=== PATIENT | female | born 1985 | race Caucasian/White ===

== ENCOUNTER → 2016-11-13 | Outpatient (CLI) | payer OTHER | END | disposition home or self-care (01) | LOC: LABWHC1 11:56 | PROVIDERS: ATTEND Midwife | DX: Z36 Encounter for antenatal screening of mother (principal) | CPT/HCPCS: 36415; 82950 ==

== ENCOUNTER → 2020-03-10 | Outpatient (CLI) | payer OTHER ==
--- NOTE | 2020-03-10 11:30 | US ---
EXAMINATION TYPE: Transabdominal DATE OF EXAM: 03/10/2020 11:15 AM COMPARISON: NONE CLINICAL HISTORY: Z36 Confirm dates. Positive hCG test. EXAM PERFORMED: Transabdominal (TA) EXAM MEASUREMENTS: GESTATIONAL AGE / DATING Physician Established: Not yet established Dates by LMP: (9 weeks/5 days) EDC: 10/09/19 Dates by First Scan: 1st scan today Dates by Current Scan for: (9 weeks/1 days) EDC: 10/13/19 MATERNAL ANATOMY Uterus: 13.1 x 7.0 x 8.6cm Right Ovary: 3.0 x 2.5 x 2.2cm Left Ovary: 2.3 x 1.9 x 1.7cm Post CDS / Adnexa: wnl Subchorionic bleed measuring 1.6 x 0.5 x 1.1cm GESTATION / SURVEY CRL: 2.6cm (9 weeks/1 days) Yolk Sac (normal less than 6mm): 3mm Heart Rate: 170 bpm Rhythm: Normal IUP: Viable IUP Date of LMP: 01-02-20 Beta HcG (if available): Not available at this time Single live intrauterine gestation as gestational sac, yolk sac, and pole are seen. No free flu id in pelvic cul-de-sac. Both ovaries are seen. No suspicious extraovarian adnexal mass. IMPRESSION: Confirmation of single live intrauterine gestation, mean crown-rump length is 2.5 cm georgie esponding to 9 week 1 day old fetus
== END | disposition home or self-care (01) ==
LOC: RADUSWWP 10:55
PROVIDERS: ATTEND Obstetrics & Gynecology
DX: Z36.87 Encounter for antenatal screening for uncertain dates (principal); Z3A.09 9 weeks gestation of pregnancy
CPT/HCPCS: 76801

== ENCOUNTER 2020-10-03 06:00 | Inpatient (IN) | payer OTHER ==
[2020-10-03] MEDS ORDERED: CARBOPROST TROMETHAMINE 250 MCG/ML 1 ML AMP IM PRN (07:00)
[2020-10-03] MEDS ORDERED: METHYLERGONOVINE 0.2 MG/ML 1 ML AMP IM PRN (07:00)
[2020-10-03] MEDS ORDERED: OXYTOCIN 10 UNIT/ML 1 ML VIAL IM PRN (07:00)
[2020-10-03] MEDS ORDERED: TERBUTALINE 1 MG/ML VIAL SQ PRN (07:00)
[2020-10-03] MEDS ORDERED: LIDOCAINE 0.5% (PF) 5 MG/ML (50 ML SDV) SQ PRN (07:00)
[2020-10-03 07:08] LABS: Basophils % (A) 0 %; Eosinophils # (A) 0.1 k/uL (0-0.7); Eosinophils % (A) 1 %; HCT 34.3 % (34.0-46.0); HGB 11.7 gm/dL (11.4-16.0); Lymphocytes # (A) 1.5 k/uL (1.0-4.8); Lymphocytes % (A) 21 %; MCH 29.3 pg (25.0-35.0); MCHC 34.1 g/dL (31.0-37.0); MCV 86.1 fL (80.0-100.0); Mean Platelet Volume 6.6; Monocytes # (A) 0.5 k/uL (0-1.0); Monocytes % (A) 7 %; Neutrophils % (A) 68 %; Platelet Count 360 k/uL (150-450); RBC 3.99 m/uL (3.80-5.40); RDW 14.3 % (11.5-15.5); WBC 7.3 k/uL (3.8-10.6)
[2020-10-03] MEDS: LACTATED RINGERS 1,000 ML IV SCH ×3 (07:21→12:41)
[2020-10-03] MEDS ORDERED: OXYTOCIN 30 UNITS/500 ML NS 30 UNIT in SALINE 1 500ML.BAG IV SCH ×2 (07:30→14:00)
[2020-10-03] MEDS ORDERED: SODIUM CHLORIDE 0.9% 100 ML BAG ONE (09:56)
[2020-10-03] MEDS ORDERED: ROPIVACAINE 5MG/ML 20ML VIAL ONE (09:56)
[2020-10-03] MEDS ORDERED: fentaNYL (PF) 50 MCG/ML 5 ML AMP ONE (09:56)
[2020-10-03] MEDS ORDERED: HYDROCORTISONE 2.5% RECTAL CREAM 30 GM TUBE RECTAL PRN (13:59)
[2020-10-03] MEDS ORDERED: ZOLPIDEM 5 MG TAB PO PRN (13:59)
[2020-10-03] MEDS ORDERED: SIMETHICONE 80 MG CHEWABLE PO PRN (13:59)
[2020-10-03] MEDS ORDERED: LANOLIN CREAM 5 GM TUBE TOPICAL PRN (13:59)
[2020-10-03] MEDS ORDERED: ACETAMINOPHEN TAB 325 MG TAB PO PRN (13:59)
[2020-10-03] MEDS ORDERED: diphenhydrAMINE 25 MG CAP PO PRN (13:59)
[2020-10-03] MEDS ORDERED: diphenhydrAMINE 50 MG CAP PO PRN (13:59)
[2020-10-03] MEDS ORDERED: diphenhydrAMINE 50 MG/ML 1 ML VIAL IVP PRN ×2 (13:59)
[2020-10-03] MEDS ORDERED: BENZOCAINE/MENTHOL SPRAY 1 GM/SPRAY AEROSOL TOPICAL PRN (13:59)
[2020-10-03] MEDS: IBUPROFEN 600 MG TAB PO SCH ×2 (15:10→20:18)
--- NOTE | 2020-10-03 16:12 | P.HPOB ---
History of Present Illness H&P Date: 10/03/20 Chief Complaint: Uterine at term: Induction of labor Patient is a 34-year-old at 39 weeks gestation who arrives for induction of labor. Her course was, complicated by history of possible preeclampsia and was followed very closely through the latter part of the to verify no blood pressure changes. She is feeling well at this time and otherwise is doing well. A category 1 tracing is noted. She is dilated to 2-1/2 cm and artificial rupture membranes was performed with clear fluid noted. All questions are answered for her and we'll plan for epidural for analgesia. Pitocin for augmentation of labor. Past Medical History Past Medical History: Asthma History of Any Multi-Drug Resistant Organisms: None Reported Past Surgical History: No Surgical Hx Reported Past Anesthesia/Blood Transfusion Reactions: No Reported Reaction Past Psychological History: No Psychological Hx Reported Smoking Status: Never smoker - Past Family History Father Family Medical History: Cancer Medications and Allergies Allergies Allergy/AdvReac Type Severity Reaction Status Date / Time ciprofloxacin [From Cipro] Allergy Rash/Hives Verified 10/03/20 07:00 Exam Osteopathic Statement: *. No significant issues noted on an osteopathic structural exam other than those noted in the History and Physical/Consult. Vital Signs Temp Pulse Resp BP Pulse Ox 10/03/20 15:48 98.1 F 96 16 117/60 99 10/03/20 15:18 68 16 120/62 98 10/03/20 14:48 72 16 112/61 99 10/03/20 14:33 75 17 108/59 99 10/03/20 14:18 71 17 110/55 99 10/03/20 14:02 97.3 F L 80 17 115/58 99 10/03/20 13:48 97.3 F L 75 18 121/56 98 10/03/20 06:40 96.9 F L 82 20 131/72 98 Intake and Output 10/03/20 10/03/20 10/03/20 06:59 14:59 22:59 Intake Total 6.267 Balance 6.267 Intake: Intake, IV Titration 6.267 Amount Oxytocin 30 Units/500 ml 6.267 Ns 30 unit In Saline 1 500ml.bag @ Per Protocol IV .Q0M [facility], 1928–1983 Rx#:[id number] Other: # Voids 1 Weight 95.254 kg - OBG Physical Exam Breast: both: normal (no masses) Abdomen: bowel sounds normal, no diffuse tenderness, no bruit present, no guarding noted, no hepatomegaly, no splenomegaly, no mass Vulva: both: normal Vagina: normal moisture, no discharge Cervix: no lesion, no discharge Uterus: normal size, normal contour Adnexa: both: normal Anus/Rectum: normal perianal skin, no rectal mass, no hemorrhoids, heme negative Results Result Diagrams: 10/03/20 07:00
[2020-10-03] MEDS: SENNOSIDES-DOCUSATE SODIUM 1 EACH TAB PO SCH (20:19)
[2020-10-04] MEDS: IBUPROFEN 600 MG TAB PO SCH ×2 (02:26→09:28)
--- NOTE | 2020-10-04 07:39 | P.PNOBGVD ---
Subjective - Subjective Patient reports: Reports appetite normal, Reports voiding normally, Reports pain well controlled, Reports ambulating normally : doing well Objective - Latest Vital Signs Latest vital signs: Vital Signs Temp Pulse Resp BP Pulse Ox 10/04/20 00:00 98.1 F 79 16 135/75 10/03/20 20:00 98.4 F 78 16 108/73 10/03/20 15:48 98.1 F 96 16 117/60 99 10/03/20 15:18 68 16 120/62 98 10/03/20 14:48 72 16 112/61 99 10/03/20 14:33 75 17 108/59 99 10/03/20 14:18 71 17 110/55 99 10/03/20 14:02 97.3 F L 80 17 115/58 99 10/03/20 13:48 97.3 F L 75 18 121/56 98 Intake and Output 10/03/20 10/04/20 10/04/20 22:59 06:59 14:59 Intake Total 250 Balance 250 Intake: Oral 250 Other: # Voids 1 3 - Exam Lungs: bilateral: normal Chest: Normal S1, Normal S2 Extremities: Present: normal Abdomen: Present: normal appearance, soft Uterus: Present: normal, firm Assessment and Plan Assessment: Post day #1. Patient is resting without complaints and wishes to go home. Vital signs are stable she is afebrile. Uterus is firm nontender and she is having normal lochia. My impression this is a normal course. Plan is to continue routine care discharge home later today (1) Vaginal delivery Current Visit: Yes Status: Acute Code(s): O80 - ENCOUNTER FOR FULL-TERM UNCOMPLICATED DELIVERY SNOMED Code(s): 514407445
--- NOTE | 2020-10-04 07:46 | P.DS ---
Providers Date of admission: 10/03/20 06:38 Expected date of discharge: 10/04/20 Attending physician: Vamshi Ramon Primary care physician: Stated None - Discharge Diagnosis(es) (1) Vaginal delivery Current Visit: Yes Status: Acute Hospital Course: Please see dictated admission history and physical per Dr. Ramon and this patient's admission. Brief summary this is a 34-year-old 4 para 3 female admitted to labor and delivery for elective induction of labor. Patient went on to have a normal vaginal delivery of viable female . Please see dictated delivery note per Dr. Ramon. day #1 patient's felt to be stable for discharge home follow up with Dr. Ramon 6 weeks. Procedures: Induction of labor and normal vaginal delivery Patient Condition at Discharge: Good Plan - Discharge Summary New Discharge Prescriptions: New Ibuprofen [Motrin] 600 mg PO Q6H #30 tab Discharge Medication List Ibuprofen [Motrin] 600 mg PO Q6H #30 tab 10/04/20 [Rx] Follow up Appointment(s)/Referral(s): Vamshi Ramon DO [Doctor of Osteopathic Medicine] - 11/17/20 10:30 am Patient Instructions/Handouts: Vaginal Delivery (DC) Activity/Diet/Wound Care/Special Instructions: No intercourse or anything per vagina for 6 weeks. Please call if any fever, chills, excessive vaginal bleeding, and/or abdominal pain. Discharge Disposition: HOME SELF-CARE
[2020-10-04] MEDS: SENNOSIDES-DOCUSATE SODIUM 1 EACH TAB PO SCH (08:00)
[2020-10-04 08:30] VITALS: BP 129/84; PULSE 72; RESP 18; TEMP 98.3
--- NOTE | 2020-10-28 17:07 | P.PROBDLV ---
Vaginal Delivery Note - . Vaginal Delivery Note: Patient progressed complete and pushing with spontaneous vaginal delivery of a viable female over an intact perineum. Falling deliver the head anterior posterior shoulders were easily delivered with gentle downward upper traction followed by the remainder the baby. He was then placed on mother's abdomen where the umbilical cord was allowed to pulsate for 30 seconds prior to clamping and cutting nursery personnel was present to assume care. Placenta was then delivered intact Pitocin was added to the IV. scores were 8 and 9 at one and 5 minutes respectively and the weight was 3600 kg. Mother and baby are stable for delivery.
== END 2020-10-04 15:00 | disposition home or self-care (01) | DRG 807 ==
LOC: 4FBP 06:38
PROVIDERS: ADMIT Obstetrics & Gynecology; ATTEND Obstetrics & Gynecology
PROC: 10E0XZZ Delivery of Products of Conception, External Approach (ICD-10-PCS; principal; 2020-10-03)
PROC: 3E033VJ Introduction of Other Hormone into Peripheral Vein, Percutaneous Approach (ICD-10-PCS; principal; 2020-10-03)
PROC: 00HU33Z Insertion of Infusion Device into Spinal Canal, Percutaneous Approach (ICD-10-PCS; principal; 2020-10-03)
PROC: 10907ZC Drainage of Amniotic Fluid, Therapeutic from Products of Conception, Via Natural or Artificial Opening (ICD-10-PCS; principal; 2020-10-03)
PROC: 3E0R3BZ Introduction of Anesthetic Agent into Spinal Canal, Percutaneous Approach (ICD-10-PCS; principal; 2020-10-03)
DX: O99.52 Diseases of the respiratory system complicating childbirth (principal); Z37.0 Single live birth; J45.909 Unspecified asthma, uncomplicated; Z3A.39 39 weeks gestation of pregnancy; Z88.1 Allergy status to other antibiotic agents; Z80.9 Family history of malignant neoplasm, unspecified
CPT/HCPCS: 85025; 86850; 86900; 86901